=== PATIENT | male | born 1965 | race Caucasian/White ===

== ENCOUNTER → 2019-04-25 | Outpatient (CLI) | payer OTHER ==
--- NOTE | 2019-04-26 14:35 | RAD ---
2 views the right knee without comparison for knee pain, disability determination. FINDINGS: There is no fracture or acute osseous abnormality. There is severe degenerative change about the knee, with mild lateral subluxation of the tibia, tricompartmental narrowing and osteophyte formation, subchondral sclerosis and cysts, and there is increased density within the menisci suggestive of CPPD. IMPRESSION: 1. Severe arthritic changes of the knee with no acute osseous abnormality. 2. CPPD. Electronically signed by: Jose Ramon Gamble MD (04/26/2019 2:32 PM) [facility]
== END | disposition home or self-care (01) ==
LOC: RAD 09:57
PROVIDERS: ATTEND Surgery
DX: M17.11 Unilateral primary osteoarthritis, right knee (principal); M25.761 Osteophyte, right knee; M11.261 Other chondrocalcinosis, right knee
CPT/HCPCS: 73560